=== PATIENT | male | born 1995 | race Caucasian/White ===

== ENCOUNTER 2024-11-06 12:40 | Emergency (ER) | payer BC ==
--- NOTE | 2024-11-06 13:27 | EDPHYS ---
Physician Documentation [facility] Name: Bill Warren Age: 29 yrs Sex: Male : 1995 Arrival Date: 11/06/2024 Time: 12:40 Bed 9 Private MD: ED Physician Matt Knight HPI: 11/06 13:02 This 29 yrs old Male presents to ER via Ambulatory with complaints of Abscess.dr5 13:02 The patient presents with an abscess of the buttocks. Patient is a 29-year-old male dr5 coming in with gluteal abscess that he thinks started draining this morning. Patient is currently on cleanse in order to have surgery completed by Dr. Zhu tomorrow morning at 0730 for this abscess. Patient denies fever and states he is not taking any antibiotics at this time.. Historical: - Allergies: 12:52 No Known Allergies; cm10 - Home Meds: 12:52 None [Active]; cm10 - PMHx: 12:52 None; cm10 - PSHx: 12:52 None; cm10 - Immunization history:: Adult Immunizations up to date. - Infectious Disease History:: Denies. - Social history:: Smoking status: Patient denies any tobacco usage or history of. ROS: 13:02 Constitutional: as per hpi dr5 Exam: 13:29 Constitutional: This is a well developed, well nourished patient who is awake, alert, dr5 and in no acute distress. Head/Face: Normocephalic, atraumatic. ENT: Nares patent. No nasal discharge, no septal abnormalities noted. Tympanic membranes are normal and external auditory canals are clear. Oropharynx with no redness, swelling, or masses, exudates, or evidence of obstruction, uvula midline. Mucous membranes moist. Neck: Trachea midline, no thyromegaly or masses palpated, and no cervical lymphadenopathy. Supple, full range of motion without nuchal rigidity, or vertebral point tenderness. No Meningismus. Chest/axilla: Normal chest wall appearance and motion. Nontender with no deformity. No lesions are appreciated. Respiratory: Lungs have equal breath sounds bilaterally, clear to auscultation. No rales, rhonchi or wheezes noted. No increased work of breathing, no retractions or nasal flaring. Abdomen/GI: Soft, non-tender, non-distended 13:29 Skin: Appearance: Color: abscess, that is moderate sized, of the lower gluteal cleft, with surrounding cellulitis, that is moderate, No drainage at this time., Vital Signs: 12:50 BP 141 / 88; Pulse 92; Resp 15; Temp 98.4(O); Pulse Ox 98% on R/A; Weight 86.64 kg; cm10 Height 5 ft. 9 in. ; Pain 3/10; 12:50 Body Mass Index 28.21 (86.64 kg, 175.26 cm) cm10 12:50 Pain Scale: Adult cm10 MDM: 12:49 Medical Screening Exam initiated dr5 13:29 Differential diagnosis: abscess, cellulitis, Cyst. Data reviewed: vital signs, nurses dr5 notes. Care significantly affected by the following Social Determinants of Health: Poor access to healthcare and/or lack of insurance, Poor access to transportation, Problems related to employment. Counseling: I had a detailed discussion with the patient and/or guardian regarding the historical points, exam findings, and any diagnostic results supporting the discharge/admit diagnosis, the presence of at least one elevated blood pressure reading (>120/80) during this emergency department visit, the need for outpatient follow up, Tomorrow morning with Dr. Zhu as scheduled., to return to the emergency department if symptoms worsen or persist or if there are any questions or concerns that arise at home. ED course: Abscess is not draining at this time. Patient needs surgery tomorrow morning as scheduled. Patient is currently on cleanse. Will have patient return home to finish cleanse and be ready for tomorrow morning. "All questions answered. Patient is agreeable to this plan. Administered Medications: No medications were administered Disposition Summary: 11/06/24 13:27 Discharge Ordered Notes: Location: Home dr5 Condition: Stable dr5 Diagnosis - Cutaneous abscess, unspecified dr5 Followup: dr5 - With: Emergency Department - When: As needed - Reason: Worsening of condition Followup: dr5 - With: Private Physician - When: 1 - 2 days - Reason: Recheck today's complaints, Continuance of care, Re-evaluation by your physician Discharge Instructions: - Discharge Summary Sheet dr5 - Skin Abscess dr5 Forms: - Medication Reconciliation Form dr5 - Patient Portal Instructions dr5 - Leadership Thank You Letter dr5 Addendum: 11/08/2024 15:29 Co-signature as Attending Physician, Matt Eugene MD I agree with the assessment and c hayden plan of care. Signatures: Matt Knight MD MD cha Martinez, Clarissa, RN RN cm10 Carson Hammer, EDI DEVELOPER-C EDI DEVELOPER-Cdr5 Corrections: (The following items were deleted from the chart) 11/06 12:52 12:52 PSHx: Unable to Obtain; cm10 cm10
--- NOTE | 2024-11-06 13:27 | ER ---
Nurse's Notes [facility] Name: Bill Warren Age: 29 yrs Sex: Male : 1995 Arrival Date: 11/06/2024 Time: 12:40 Bed 9 Private MD: Diagnosis: Cutaneous abscess, unspecified Presentation: 11/06 12:50 Chief complaint: Patient states: Abscess to left buttocks. Pt states that 30 minutes cm10 ago it started draining. Pt scheduled to have surgery for abscess tomorrow with Dr. Zhu. Coronavirus screen: Client denies travel out of the [place] in the last 14 days. Ebola Screen: Patient denies travel to an Ebola-affected area in the 21 days before illness onset. Initial Sepsis Screen: Does the patient meet any 2 criteria? HR > 90 bpm. Does the patient have a suspected source of infection? No. Patient's initial sepsis screen is negative. Risk Assessment: Do you want to hurt yourself or someone else? Patient reports no desire to harm self or others. Onset of symptoms was November 06, 2024. 12:50 Method Of Arrival: Ambulatory cm10 12:50 Acuity: SOFIYA 4 cm10 Triage Assessment: 12:52 General: Appears in no apparent distress. uncomfortable, Behavior is calm, cooperative. cm10 Neuro: No deficits noted. Level of Consciousness is awake, alert, obeys commands, Oriented to person, place, time, situation, Appropriate for age. Respiratory: No deficits noted. Airway is patent Respiratory effort is even, unlabored, Respiratory pattern is regular, symmetrical. Historical: - Allergies: 12:52 No Known Allergies; cm10 - Home Meds: 12:52 None [Active]; cm10 - PMHx: 12:52 None; cm10 - PSHx: 12:52 None; cm10 - Immunization history:: Adult Immunizations up to date. - Infectious Disease History:: Denies. - Social history:: Smoking status: Patient denies any tobacco usage or history of. Screenin:10 [facility] ED Fall Risk Assessment (Adult) History of falling in the last 3 months, br2 including since admission No falls in past 3 months (0 pts) Confusion or Disorientation No (0 pts) Intoxicated or Sedated No (0 pts) Impaired Gait No (0 pts) Mobility Assist Device Used No (0 pt) Altered Elimination No (0 pt) Score/Fall Risk Level 0 - 2 = Low Risk Oriented to surroundings. Abuse screen: Denies threats or abuse. Denies injuries from another. Nutritional screening: No deficits noted. Tuberculosis screening: No symptoms or risk factors identified. Assessment: 13:10 Reassessment: Patient and/or family updated on plan of care and expected duration. Pain br2 level reassessed. Patient is alert, oriented x 3, equal unlabored respirations, skin warm/dry/pink. General: Appears in no apparent distress. comfortable, uncomfortable, Behavior is calm, cooperative. Pain:. Derm: Abscess located on left gluteus elvis blood tinge drainage. Vital Signs: 12:50 BP 141 / 88; Pulse 92; Resp 15; Temp 98.4(O); Pulse Ox 98% on R/A; Weight 86.64 kg; cm10 Height 5 ft. 9 in. ; Pain 3/10; 12:50 Body Mass Index 28.21 (86.64 kg, 175.26 cm) cm10 12:50 Pain Scale: Adult cm10 ED Course: 12:43 Patient arrived in ED. sj2 12:47 Carson Hammer FNP-C is PHCP. dr5 12:47 Matt Knight MD is Attending Physician. dr5 12:51 Triage completed. cm10 12:53 Arm band placed on right wrist. Patient placed in an exam room, on a stretcher. cm10 13:06 Yumiko Hansen RN is Primary Nurse. br2 13:10 Patient has correct armband on for positive identification. Placed in gown. Bed in low br2 position. Call light in reach. Side rails up X 1. Provided Education on: plan of care. 13:36 No provider procedures requiring assistance completed. Patient did not have IV access br2 during this emergency room visit. Administered Medications: No medications were administered Medication: 13:36 VIS not applicable for this client. br2 Outcome: 13:27 Discharge ordered by . dr5 13:36 Patient left the ED. br2 13:36 Discharged to home ambulatory, br2 13:36 Condition: good 13:36 Discharge instructions given to patient, Instructed on discharge instructions, Demonstrated understanding of instructions, follow-up care, Signatures: Luana Zhu RN RN cm10 Yumiko Hansen RN RN br2 Shannan Sauceda sj2 Carson Hammer, CHANNEL MARKETING SPECIALIST-C CHANNEL MARKETING SPECIALIST-Cdr5 Corrections: (The following items were deleted from the chart) 52 12:52 PSHx: Unable to Obtain; cm10 cm10
[2024-11-06 13:40] VITALS: BP 141/88; TEMP 98.4; O2SAT 98
== END 2024-11-06 13:36 | disposition home or self-care (01) ==
LOC: ER 12:40
DX: L02.31 Cutaneous abscess of buttock (principal); L03.317 Cellulitis of buttock
CPT/HCPCS: 99282

== ENCOUNTER 2024-11-07 07:21 | Day surgery (SDC) | payer BC ==
[2024-11-07 07:57] LABS: Absolute Eosinophils 0.3 K/uL (0-0.5); Absolute Lymphocytes (CBC) 1.1 K/uL (0.7-4.9); Absolute Monocytes 0.4 K/uL (0.1-1.3); Absolute Neutrophil 3.1 K/uL (1.8-8.0); Basophils % 0.6 % (0-1.3); Eosinophils % 6.6 % (0-4.4); Hematocrit 48.9 % (39.6-49.0); Hemoglobin 16.5 g/dL (13.6-17.9); Lymphocytes % 21.5 % (15.3-44.8); MCH 29.6 pg (27.0-35.0); MCHC 33.8 g/dL (32.0-36.0); MCV 87.5 fL (80-100); MPV 8.1 fL (7.6-11.3); Monocytes % 8.4 % (3.3-12.3); Neutrophils % 62.9 % (41.7-73.7); Nucleated Red Blood Cells % 0.2 % (0-0); Platelets 269 thou/uL (152-406); RBC Red Blood Cell Count 5.59 M/uL (4.33-5.43); Red Cell Distribution Width 13.5 % (12.1-15.2)
[2024-11-07 08:12] LABS: Anion Gap 8.6 mEq/L (5.0-15.0); Potassium 3.6 mEq/L (3.5-5.1)
[2024-11-07] MEDS ORDERED: LIDOCAINE 2% MPF 5 ML VIAL ONE (08:53)
[2024-11-07] MEDS ORDERED: FENTANYL CITR 100 MCG/2 ML ONE ×2 (08:53→11:51)
[2024-11-07] MEDS ORDERED: ONDANSETRON 4 MG/2 ML VIAL ONE (08:53)
[2024-11-07] MEDS ORDERED: MIDAZOLAM HCL 2 MG/2 ML INJ ONE (08:53)
[2024-11-07] MEDS ORDERED: propofoL 200 MG/20 ML VIAL IV ONE (08:53)
[2024-11-07] MEDS ORDERED: Ringers Lactate 1,000 ML IV ONE (09:30)
[2024-11-07] MEDS: CEFAZOLIN SODIUM 1 GM/VIAL ONE (11:34)
[2024-11-07] MEDS ORDERED: dexAMETHasone 10 MG/ML VIAL ONE (11:43)
[2024-11-07] MEDS: BUPIVACAINE 0.5% PF 10 ML VIAL ONE (11:45)
[2024-11-07] MEDS: FENTANYL CITR 100 MCG/2 ML ONE (12:30)
--- NOTE | 2024-11-07 12:30 | P.BOP ---
Preoperative diagnosis: perianal abscess Postoperative diagnosis: same Primary procedure: EUA, anoscopy, rigid proctoscopy, I &D perianal abscess Secondary procedure: [id number] Estimated blood loss: <10cc Specimen: culture, tract Findings: abscess cant r/o fistula Anesthesia: General Complications: None Drain(s): Other (/" iodoform) Transferred to: Recovery Room Condition: Good
[2024-11-07 12:31] VITALS: O2SAT 100
[2024-11-07 13:24] VITALS: BP 136/62; TEMP 97.1
--- NOTE | 2024-11-10 15:19 | DS ---
Date of Discharge: 11/07/2024 Diagnosis: Perianal abscess. Procedure: EUA, anoscopy, proctoscopy, I and D of complex perianal abscess. Condition: Stable. Disposition: Home. Activity: As tolerated, no heavy lifting. Followup: Follow in my office in the next 48 hours. Will be doing an iodoform packing. Medications: See orders. HARSHA/POWER Voice ID: [id number] Report ID: [id number]
--- NOTE | 2024-11-10 15:19 | OP ---
Date of Procedure: 11/07/2024 Surgeon: Otto Zhu MD Preoperative Diagnosis: Perianal abscess. Postoperative Diagnosis: Perianal abscess. Procedure: EUA, anoscopy, rigid proctoscopy, incision and drainage of complex perianal abscess, it i s about 2 x 2 x 5 cm long. Estimated Blood Loss: Less than 10 cc. Specimen: Culture with tract. Findings: An abscess, but I cannot see the fistula a half a tract going near the rectum, but the vera fice is not opened in the rectum, so maybe that is closed already. Anesthesia: General plus local. Packing: Iodoform quarter of an inch. Indications: This is the case of a male, who comes to us with history of perianal abscess. We have not been able to find an opening in the rectum and the fistula, but we have findings suspicious for i t. The patient started draining yesterday, went to the ER. He was trying to treat this with p.o. an tibiotics, did not improve, so he comes to the office with perianal abscess and we offered him EUA, a noscopy, proctoscopy, and I and D of perianal abscess with benefits, alternatives, and risks includin g, but not limited to infection, bleeding, damage to adjacent structures, anesthesia complication, re currence, [place], even . He also understands this may not relieve symptoms, he might need more than one surgical intervention. He understood, signed a consent. Description Of Procedure: The patient brought to the operating room, placed in supine position. Ane sthesia was done without complication. Time-out was called. The patient was placed in lithotomy pos ition with proper protection. Rectal examination was done followed by rigid proctoscopy. Even thoug h we feel the abscess in the area of the buttocks is about 4-5 cm away from the anus, I cannot see th e connection in the rectum. We did anoscopy too, then we did an I and D of the abscess, large pus wa s obtained. Then we see a channel that goes medially into the area of the rectum probably about 2 cm proximal to the anus, but I did not see the opening in that area. That is after we probed that one. Abscess was drained, culture was done. Packing was done with the iodoform quarter of an inch after the area was localized with local anesthetic. The patient tolerated the procedure well. Did steril e dressings over the area. The patient sent to recovery in stable condition. HARSHA/POWER Voice ID: [id number] Report ID: [id number]
== END 2024-11-07 13:30 | disposition home or self-care (01) ==
LOC: OR 07:21
PROVIDERS: ATTEND Surgery
PROC: 0DJD8ZZ Inspection of Lower Intestinal Tract, Via Natural or Artificial Opening Endoscopic (ICD-10-PCS; 2024-11-07)
PROC: 0D9Q0ZX Drainage of Anus, Open Approach, Diagnostic (ICD-10-PCS; principal; 2024-11-07 11:21)
DX: K61.0 Anal abscess (principal)
CPT/HCPCS: 46050; 45300; 87070; 85025; 80048; 36415; 87205 ×2; 88304; 87075; J2704; J2003; J2250; J3010 ×3; J1100; J2405; J7120; J0690; 87077; 87186